=== PATIENT | male | born 1970 | race American Indian/Alaskan Native ===

== ENCOUNTER 2021-10-25 10:49 | Emergency (ER) | payer BC ==
[2021-10-25 11:26] VITALS: BP 146/88
--- NOTE | 2021-10-25 12:08 | XRay Report ---
LEFT ANKLE 3 VIEWS INDICATION: LEFT ANKLE PAIN AND SWELLING.. COMPARISON: None. IMPRESSION: There is severe diffuse soft tissue swelling. No acute osseous abnormality or joint pat hology is detected. Signer Name: Christiano Benz Jr, MD Signed: 10/25/2021 12:03 PM Workstation Name: [id number]
--- NOTE | 2021-10-25 12:24 | Emergency Department Report ---
ED Extremity Problem HPI - General Chief complaint: Extremity Injury, Lower Stated complaint: ANKLE/FOOT PAIN Time Seen by Provider: 10/25/21 11:27 Source: patient Mode of arrival: Ambulatory Limitations: No Limitations - History of Present Illness Initial comments: 51 yo black male with a pmh of HTN and HLD presents to ed for evaluation of left ankle swelling. He states that he started taking Amlodipine about one month ago, had a dose increase about 2 weeks ago then shortly after started to have swelling to right ankle then to his left. He denies any trauma or injury and also denies cp, sob, n/v, dizziness, and diaphoresis. MD Complaint: extremity swelling -: week(s) (1.5) Location: left, lower extremity (ankle) History of Same: No -: No myalgia, No arthralgia, No fever, No associated dyspnea, No associated chest pain Severity scale (0 -10): 0 Worsens with: weight bearing (states that he only feels pain when he walks on it alot. ) Associated Symptoms: denies: chest pain, shortness of breath, fever, myalgias, arthralgias, rash ED Review of Systems ROS: Stated complaint: ANKLE/FOOT PAIN Other details as noted in HPI Comment: All other systems reviewed and negative Constitutional: denies: chills, fever, malaise, weakness Respiratory: denies: shortness of breath Cardiovascular: denies: chest pain, palpitations, dyspnea on exertion Gastrointestinal: denies: abdominal pain, nausea, vomiting Genitourinary: denies: urgency, dysuria Musculoskeletal: denies: back pain ED Past Medical Hx - Past Medical History Hx Hypertension: Yes - Surgical History Additional Surgical History: nasal sx - Social History Smoking Status: Never Smoker ED Physical Exam - General Limitations: No Limitations General appearance: alert, in no apparent distress - Head Head exam: Present: atraumatic, normocephalic - Neck Neck exam: Present: normal inspection - Respiratory Respiratory exam: Present: normal lung sounds bilaterally. Absent: respiratory distress, wheezes, rales, rhonchi, stridor, chest wall tenderness - Cardiovascular Cardiovascular Exam: Present: regular rate, normal heart sounds - GI/Abdominal GI/Abdominal exam: Present: soft, normal bowel sounds. Absent: distended, tenderness - Expanded Lower Extremity Exam Left Upper Leg exam: Present: normal inspection Knee exam: Present: normal inspection Lower Leg exam: Present: swelling Ankle exam: Present: swelling. Absent: abrasion, ecchymosis, deformity, crepidus, dislocation, erythema Foot/Toe exam: Present: swelling. Absent: tenderness, abrasion, ecchymosis, deformity, crepidus, erythema Neuro vascular tendon exam: Present: no vascular compromise. Absent: pulse deficit, abnormal cap refill, motor deficit, extremity cold to touch, pallor Gait: Positive: observed and normal - Back Exam Back exam: Present: normal inspection - Neurological Exam Neurological exam: Present: alert, oriented X3 - Psychiatric Psychiatric exam: Present: normal affect, normal mood - Skin Skin exam: Present: warm, dry, intact, normal color ED Course Vital Signs 10/25/21 11:21 Temperature 98.5 F Pulse Rate 92 H Respiratory 18 Rate Blood Pressure 146/88 O2 Sat by Pulse 99 Oximetry ED Medical Decision Making - Radiology Data Radiology results: report reviewed, image reviewed Left ankle xray: IMPRESSION: There is severe diffuse soft tissue swelling. No acute osseous abnormality or joint pathology is detected. - Medical Decision Making 51 yo black male with a pmh of HTN and HLD presents to ed for evaluation of left ankle swelling. He states that he started taking Amlodipine about one month ago, had a dose increase about 2 weeks ago then shortly after started to have swelling to right ankle then to his left. He denies any trauma or injury and also denies cp, sob, n/v, dizziness, and diaphoresis. Right ankle xray without any acute abnormalities noted, and peripheral edema likely secondary to amlodopine. Patient was advised to follow up with his pcp for evaluation of dosage and return to ed for sob, cp, dizziness, n/v, or diaphoresis. He verbalized understanding of and agreement with plan of care. Critical care attestation.: If time is entered above; I have spent that time in minutes in the direct care of this critically ill patient, excluding procedure time. ED Disposition Clinical Impression: Left ankle swelling Disposition: HOME / SELF CARE / HOMELESS Is pt being admited?: No Does the pt Need Aspirin: No Condition: Stable Instructions: Amlodipine tablets Additional Instructions: Follow-up with your primary care provider tomorrow as discussed to see about adjustment of dosages of amlodipine, hypertension medicine. Return to the emergency department as needed. Referrals: ANITA ZHANG MD [Staff Physician] - 3-5 Days Forms: Work/School Release Form(ED) Time of Disposition: 12:23
== END 2021-10-25 13:44 | disposition home or self-care (01) ==
LOC: ED 10:49
DX: R22.42 Localized swelling, mass and lump, left lower limb (principal); I10 Essential (primary) hypertension; Z79.899 Other long term (current) drug therapy
CPT/HCPCS: 99283